=== PATIENT | female | born 1940 | race Caucasian/White ===

== ENCOUNTER → 2017-01-10 | Outpatient (CLI) | payer MEDICARE, BC ==
[2016-06-18 12:30] VITALS: BP 180/94
[~2017-01-10] MED LIST: ALEN70TA3 PO; ATOR10TA PO; CARV12.52 PO; CHOL10002 PO; CYCL-331 PO; CYCL1DRO OP; CYCL25CA PO; FENO145T2 PO; FOLI0.8T2 PO; INSU100C4 SQ; LEFL20TA15 PO; LEVO88TA2 PO; LOTE5DRO3 EACHEYE; MYCO250C PO; ONDA8TAB12 PO; TRET45GE TP; TRIA10PO2 MC; VITA100T5 PO; VITA150T PO; ZINC50TA29 PO
== END | disposition home or self-care (01) ==
LOC: LAB 08:51
PROVIDERS: ATTEND Internal Medicine Endocrinology, Diabetes & Metabolism
DX: E03.9 Hypothyroidism, unspecified (principal)
CPT/HCPCS: 84443

== ENCOUNTER → 2017-05-12 | Outpatient (CLI) | payer MEDICARE, BC ==
[2016-06-18 12:30] VITALS: BP 180/94
== END | disposition home or self-care (01) ==
LOC: LAB 08:31
PROVIDERS: ATTEND Internal Medicine Endocrinology, Diabetes & Metabolism
DX: E03.9 Hypothyroidism, unspecified (principal)
CPT/HCPCS: 84443

== ENCOUNTER → 2017-06-02 | Outpatient (CLI) | payer MEDICARE, BC ==
[2016-06-18 12:30] VITALS: BP 180/94
[2017-06-02 09:24] LABS: ALBUMIN 3.5 g/dL (3.4-5.0); ALBUMIN/GLOBULIN RATIO 1.1 (1.0-1.7); CALCIUM 9.5 mg/dL (8.5-10.1); CREATININE 1.4 mg/dL (0.6-1.0); GFR 36.7; POTASSIUM 3.9 mmol/L (3.5-5.1); TOTAL BILIRUBIN 0.8 mg/dL (0.2-1.0); TOTAL PROTEIN 6.6 g/dL (6.4-8.2)
[2017-06-02 09:30] LABS: BASO % 1 % (0-3); EOS # 0.2 x10^3/uL (0.0-0.7); EOS % 7 % (0-3); HEMATOCRIT 34.2 % (36.0-47.0); HEMOGLOBIN 11.2 g/dL (12.0-15.5); LYMPH # 0.7 x10^3/uL (1.0-4.8); LYMPH % 26 % (24-48); MEAN CORPUSCULAR HEMOGLOBIN 28 pg (25-35); MEAN CORPUSCULAR HGB CONC 33 g/dL (31-37); MEAN CORPUSCULAR VOLUME 86 fL (79-100); MONO # 0.3 x10^3/uL (0.0-1.1); MONO % 12 % (0-9); NEUT # 1.5 x10^3uL (1.8-7.7); NEUT % 55 % (31-73); PLATELET COUNT 191 x10^3/uL (140-400); RED BLOOD COUNT 3.97 x10^6/uL (3.50-5.40); RED CELL DISTRIBUTION WIDTH 14.8 % (11.5-14.5); WHITE BLOOD COUNT 2.7 x10^3/uL (4.0-11.0)
[2017-06-02 09:31] LABS: BACTERIA,URINE 0 /HPF (0-FEW); BILIRUBIN,URINE NEG (NEG); CLARITY,URINE CLEAR; COLOR,URINE YELLOW; GLUCOSE,URINE NEG (NEG); NITRITE,URINE NEG (NEG); RBC,URINE RARE /HPF (0-2); SQUAMOUS EPITHELIAL CELL,UR OCC /LPF; UROBILINOGEN,URINE 0.2 mg/dL (0.2 mg/dL); WBC,URINE RARE /HPF (0-4)
== END | disposition home or self-care (01) ==
LOC: LAB 08:32
PROVIDERS: ATTEND Nurse Practitioner Family
DX: Z51.81 Encounter for therapeutic drug level monitoring (principal); Z79.899 Other long term (current) drug therapy; Z94.4 Liver transplant status
CPT/HCPCS: 36415; 80053; 80158; 81001; 82550; 85025; 87086

== ENCOUNTER → 2017-09-01 | Outpatient (CLI) | payer MEDICARE, BC ==
[2016-06-18 12:30] VITALS: BP 180/94
== END | disposition home or self-care (01) ==
LOC: LAB 09:50
PROVIDERS: ATTEND Internal Medicine Endocrinology, Diabetes & Metabolism
DX: E03.9 Hypothyroidism, unspecified (principal); I10 Essential (primary) hypertension; E11.9 Type 2 diabetes mellitus without complications
CPT/HCPCS: 84443

== ENCOUNTER → 2018-05-26 | Outpatient (CLI) | payer MEDICARE, BC ==
[2016-06-18 12:30] VITALS: BP 180/94
[~2018-05-26] MED LIST changes: -CARV12.52 PO; +CARV12.547 PO; -FENO145T2 PO; +FENO145T30 PO; -ZINC50TA29 PO; +ZINC50TA39 PO
== END | disposition home or self-care (01) ==
LOC: LAB 08:29
PROVIDERS: ATTEND Nurse Practitioner Adult Health
DX: Z48.22 Encounter for aftercare following kidney transplant (principal); I10 Essential (primary) hypertension; Z94.0 Kidney transplant status; Z79.899 Other long term (current) drug therapy
CPT/HCPCS: 36415; 87799

== ENCOUNTER → 2018-06-30 | Outpatient (CLI) | payer MEDICARE, BC ==
[2016-06-18 12:30] VITALS: BP 180/94
[2018-06-30 10:02] LABS: BASO % 1 % (0-3); EOS # 0.1 x10^3/uL (0.0-0.7); EOS % 3 % (0-3); HEMATOCRIT 35.7 % (36.0-47.0); HEMOGLOBIN 11.7 g/dL (12.0-15.5); LYMPH # 0.8 x10^3/uL (1.0-4.8); LYMPH % 28 % (24-48); MEAN CORPUSCULAR HEMOGLOBIN 28 pg (25-35); MEAN CORPUSCULAR HGB CONC 33 g/dL (31-37); MEAN CORPUSCULAR VOLUME 85 fL (79-100); MONO # 0.3 x10^3/uL (0.0-1.1); MONO % 11 % (0-9); NEUT # 1.6 x10^3uL (1.8-7.7); NEUT % 57 % (31-73); PLATELET COUNT 210 x10^3/uL (140-400); RED BLOOD COUNT 4.21 x10^6/uL (3.50-5.40); RED CELL DISTRIBUTION WIDTH 14.1 % (11.5-14.5); WHITE BLOOD COUNT 2.9 x10^3/uL (4.0-11.0)
[2018-06-30 10:13] LABS: ALBUMIN 3.3 g/dL (3.4-5.0); ALBUMIN/GLOBULIN RATIO 1.1 (1.0-1.7); CALCIUM 10.2 mg/dL (8.5-10.1); CREATININE 1.4 mg/dL (0.6-1.0); GFR 36.6; POTASSIUM 4.3 mmol/L (3.5-5.1); TOTAL BILIRUBIN 0.8 mg/dL (0.2-1.0); TOTAL PROTEIN 6.4 g/dL (6.4-8.2)
[2018-06-30 10:26] LABS: BACTERIA,URINE 0 /HPF (0-FEW); BILIRUBIN,URINE NEG (NEG); CLARITY,URINE HAZY; COLOR,URINE YELLOW; GLUCOSE,URINE NEG (NEG); NITRITE,URINE NEG (NEG); RBC,URINE 0 /HPF (0-2); SQUAMOUS EPITHELIAL CELL,UR OCC /LPF; UROBILINOGEN,URINE 0.2 mg/dL (0.2 mg/dL)
== END | disposition home or self-care (01) ==
LOC: LAB 08:55
DX: Z48.22 Encounter for aftercare following kidney transplant (principal); Z94.0 Kidney transplant status; Z79.899 Other long term (current) drug therapy
CPT/HCPCS: 36415; 80053; 80158; 81001; 85025; 87086

== ENCOUNTER → 2019-01-05 | Outpatient (CLI) | payer MEDICARE, BC ==
[2016-06-18 12:30] VITALS: BP 180/94
[2019-01-05 10:57] LABS: ALBUMIN 3.5 g/dL (3.4-5.0); ALBUMIN/GLOBULIN RATIO 1.2 (1.0-1.7); CALCIUM 9.9 mg/dL (8.5-10.1); CREATININE 1.3 mg/dL (0.6-1.0); GFR 39.8; POTASSIUM 4.1 mmol/L (3.5-5.1); TOTAL BILIRUBIN 0.8 mg/dL (0.2-1.0); TOTAL PROTEIN 6.4 g/dL (6.4-8.2)
[2019-01-05 14:05] LABS: FREE T4 1.73 ng/dL (0.76-1.46); THYROID STIM HORMONE (TSH) 0.065 uIU/mL (0.358-3.740)
[2019-01-05 21:07] LABS: CALCIUM PTH 9.9 mg/dL (8.7-10.3); CREATININE PTH 1.17 mg/dL (0.57-1.00); PTH INTACT 95 pg/mL (15-65)
[2019-01-08 19:06] LABS: ALBUMIN RAND UR 50.2 % (.); ALPHA 1 RAND UR 3.5 % (.); ALPHA 2 RAND UR 8.7 % (.); BETA RAND UR 25.8 % (.); GAMMA RAND UR 11.8 % (.); PROTEIN UR RAND 12.7 mg/dL (Not Estab.)
[2019-01-08 20:09] LABS: ALBUM 3.4 g/dL (2.9-4.4); ALPHA 1 0.2 g/dL (0.0-0.4); ALPHA 2 0.5 g/dL (0.4-1.0); BETA 1.1 g/dL (0.7-1.3); GAMMA 0.6 g/dL (0.4-1.8); PROTEIN TOTAL 5.7 g/dL (6.0-8.5); SPEP AG RATIO 1.5 (0.7-1.7)
== END | disposition home or self-care (01) ==
LOC: LAB 08:56
PROVIDERS: ATTEND Internal Medicine Endocrinology, Diabetes & Metabolism
DX: E11.9 Type 2 diabetes mellitus without complications (principal); E03.9 Hypothyroidism, unspecified; E78.5 Hyperlipidemia, unspecified; I10 Essential (primary) hypertension; Z79.4 Long term (current) use of insulin; Z79.899 Other long term (current) drug therapy
CPT/HCPCS: 36415; 80053; 80061; 82043; 82306; 82533; 83970; 84165; 84166; 84439; 84443

== ENCOUNTER → 2019-01-24 | Outpatient (CLI) | payer MEDICARE, BC ==
[2016-06-18 12:30] VITALS: BP 180/94
[2019-01-24 09:36] LABS: BASO % 0 % (0-3); EOS # 0.1 x10^3/uL (0.0-0.7); EOS % 4 % (0-3); HEMATOCRIT 35.4 % (36.0-47.0); HEMOGLOBIN 11.5 g/dL (12.0-15.5); LYMPH # 0.8 x10^3/uL (1.0-4.8); LYMPH % 26 % (24-48); MEAN CORPUSCULAR HEMOGLOBIN 28 pg (25-35); MEAN CORPUSCULAR HGB CONC 33 g/dL (31-37); MEAN CORPUSCULAR VOLUME 87 fL (79-100); MONO # 0.3 x10^3/uL (0.0-1.1); MONO % 10 % (0-9); NEUT # 1.8 x10^3uL (1.8-7.7); NEUT % 61 % (31-73); PLATELET COUNT 178 x10^3/uL (140-400); RED BLOOD COUNT 4.06 x10^6/uL (3.50-5.40); RED CELL DISTRIBUTION WIDTH 14.4 % (11.5-14.5); WHITE BLOOD COUNT 2.9 x10^3/uL (4.0-11.0)
[2019-01-24 09:53] LABS: ALBUMIN 3.4 g/dL (3.4-5.0); ALBUMIN/GLOBULIN RATIO 1.2 (1.0-1.7); CALCIUM 10.4 mg/dL (8.5-10.1); CREATININE 1.3 mg/dL (0.6-1.0); GFR 39.8; POTASSIUM 4.1 mmol/L (3.5-5.1); TOTAL BILIRUBIN 1.1 mg/dL (0.2-1.0); TOTAL PROTEIN 6.2 g/dL (6.4-8.2)
== END | disposition home or self-care (01) ==
LOC: LAB 08:16
PROVIDERS: ATTEND Nurse Practitioner Family
DX: Z48.23 Encounter for aftercare following liver transplant (principal); D89.9 Disorder involving the immune mechanism, unspecified; Z94.4 Liver transplant status
CPT/HCPCS: 36415; 80053; 80158; 85025

== ENCOUNTER → 2019-09-11 | Outpatient (CLI) | payer MEDICARE, BC ==
[2016-06-18 12:30] VITALS: BP 180/94
[~2019-09-11] MED LIST changes: +FENO145T3 PO; -FENO145T30 PO
[2019-09-11 19:09] LABS: THYROID STIM HORMONE (TSH) 0.111 uIU/mL (0.358-3.740)
[2019-09-12 01:07] LABS: HEMOGLOBIN A1C 5.1 % (4.8-5.6)
== END | disposition home or self-care (01) ==
LOC: LAB 08:54
PROVIDERS: ATTEND Nurse Practitioner Family
DX: M85.9 Disorder of bone density and structure, unspecified (principal); Z79.899 Other long term (current) drug therapy; Z94.4 Liver transplant status
CPT/HCPCS: 36415; 80061; 82306; 82570; 83036; 84156; 84436; 84443

== ENCOUNTER → 2019-12-18 | Outpatient (CLI) | payer MEDICARE, BC ==
[2016-06-18 12:30] VITALS: BP 180/94
== END ==
LOC: LAB 08:52
PROVIDERS: ATTEND Orthopaedic Surgery
DX: T14.8XXA Other injury of unspecified body region, initial encounter (principal); R52 Pain, unspecified; X58.XXXA Exposure to other specified factors, initial encounter; Y93.89 Activity, other specified; Y92.89 Other specified places as the place of occurrence of the external cause; Y99.8 Other external cause status
CPT/HCPCS: 36415; 86140

== ENCOUNTER → 2019-12-18 | Outpatient (CLI) | payer MEDICARE, BC ==
[2016-06-18 12:30] VITALS: BP 180/94
[2019-12-18 11:15] LABS: ALBUMIN 3.5 g/dL (3.4-5.0); ALBUMIN/GLOBULIN RATIO 1.1 (1.0-1.7); CALCIUM 10.3 mg/dL (8.5-10.1); CREATININE 1.2 mg/dL (0.6-1.0); GFR 43.6; POTASSIUM 3.9 mmol/L (3.5-5.1); TOTAL PROTEIN 6.8 g/dL (6.4-8.2)
[2019-12-18 17:09] LABS: FREE T4 1.55 ng/dL (0.76-1.46); THYROID STIM HORMONE (TSH) 0.438 uIU/mL (0.358-3.740)
[2019-12-19 00:06] LABS: CALCIUM PTH 10.3 mg/dL (8.7-10.3); CREATININE PTH 1.18 mg/dL (0.57-1.00); PTH INTACT 80 pg/mL (15-65)
[2019-12-20 13:08] LABS: ALBUM 3.5 g/dL (2.9-4.4); ALPHA 1 0.3 g/dL (0.0-0.4); ALPHA 2 0.5 g/dL (0.4-1.0); BETA 1.1 g/dL (0.7-1.3); GAMMA 0.9 g/dL (0.4-1.8); PROTEIN TOTAL 6.3 g/dL (6.0-8.5); SPEP AG RATIO 1.3 (0.7-1.7)
== END ==
LOC: LAB 09:15
PROVIDERS: ATTEND Internal Medicine Endocrinology, Diabetes & Metabolism
DX: E11.9 Type 2 diabetes mellitus without complications (principal); E78.5 Hyperlipidemia, unspecified; E03.9 Hypothyroidism, unspecified; I10 Essential (primary) hypertension; M81.0 Age-related osteoporosis without current pathological fracture; Z79.4 Long term (current) use of insulin
CPT/HCPCS: 36415; 80053; 80061; 82043; 82306; 82533; 83970; 84165; 84166; 84439; 84443

== ENCOUNTER → 2019-12-18 | Outpatient (CLI) | payer MEDICARE, BC ==
[2016-06-18 12:30] VITALS: BP 180/94
[2019-12-18 10:42] LABS: BASO % 0 % (0-3); EOS # 0.1 x10^3/uL (0.0-0.7); EOS % 4 % (0-3); HEMATOCRIT 38.5 % (36.0-47.0); HEMOGLOBIN 12.6 g/dL (12.0-15.5); LYMPH # 0.9 x10^3/uL (1.0-4.8); LYMPH % 25 % (24-48); MEAN CORPUSCULAR HEMOGLOBIN 29 pg (25-35); MEAN CORPUSCULAR HGB CONC 33 g/dL (31-37); MEAN CORPUSCULAR VOLUME 88 fL (79-100); MONO # 0.2 x10^3/uL (0.0-1.1); MONO % 7 % (0-9); NEUT # 2.2 x10^3uL (1.8-7.7); NEUT % 63 % (31-73); PLATELET COUNT 200 x10^3/uL (140-400); RED BLOOD COUNT 4.36 x10^6/uL (3.50-5.40); WHITE BLOOD COUNT 3.4 x10^3/uL (4.0-11.0)
[2019-12-18 10:47] LABS: ALBUMIN 3.5 g/dL (3.4-5.0); ALBUMIN/GLOBULIN RATIO 1.1 (1.0-1.7); CALCIUM 10.1 mg/dL (8.5-10.1); CREATININE 1.2 mg/dL (0.6-1.0); GFR 43.6; TOTAL PROTEIN 6.7 g/dL (6.4-8.2)
[2019-12-18 16:30] LABS: CREATININE,RANDOM URINE 149.2 mg/dL (Not Establ.)
== END ==
LOC: LAB 08:40
PROVIDERS: ATTEND Nurse Practitioner Family
DX: Z94.4 Liver transplant status (principal); Z94.0 Kidney transplant status; Z79.899 Other long term (current) drug therapy
CPT/HCPCS: 36415; 80053; 80158; 82570; 84156; 85025

== ENCOUNTER → 2020-01-22 | Outpatient (CLI) | payer MEDICARE, BC ==
[2016-06-18 12:30] VITALS: BP 180/94
[2020-01-22 10:55] LABS: CALCIUM 9.9 mg/dL (8.5-10.1); GFR 39.7; TOTAL PROTEIN 6.7 g/dL (6.4-8.2)
[2020-01-22 11:22] LABS: ALBUMIN 3.2 g/dL (3.4-5.0); ALBUMIN/GLOBULIN RATIO 0.9 (1.0-1.7); CREATININE 1.3 mg/dL (0.6-1.0); POTASSIUM 3.7 mmol/L (3.5-5.1); TOTAL BILIRUBIN 0.9 mg/dL (0.2-1.0)
[2020-01-22 14:09] LABS: FREE T4 1.56 ng/dL (0.76-1.46); THYROID STIM HORMONE (TSH) 0.963 uIU/mL (0.358-3.740)
--- NOTE | 2020-01-22 14:14 | RAD ---
EXAM: DUAL ENERGY X-RAY ABSORPTIOMETRY (DEXA). HISTORY: Postmenopausal screening. FINDINGS: The lowest measured T-score is -2.3 in the right femoral neck, based on a bone mineral density of 0.722 g/cm^2. Refer to the worksheets for full detail. No comparison examinations are available. IMPRESSION: Low bone mass. Bone mineral density yields a T-score between -1.0 and -2.5. Fracture risk is increased. FRAX was not calculated. METHODOLOGY: Dual energy x-ray absorptiometry was performed to measure bone mineral density. The following analysis is based on the 2019 Official Positions of the International Society for Clinical Densitometry: Measurements of the hips and the average of L1-L4 are preferred. When the spine and/or hip cannot be feasibly measured or interpreted, or in the setting of hyperparathyroidism, distal radial bone mineral density may be measured. The lumbar spine T-score is based on the average bone mineral density of L1-L4. In the setting of artifact or anatomic abnormality, some lumbar levels may be excluded, and the remaining levels used for calculation. A single lumbar level is not used for diagnosis, and if only a single level is available for assessment, another anatomic site will be used to assign a diagnosis. The hip T-score is based on the bone mineral density measurement of the femoral neck or total proximal femur of either side, whichever is lowest. Bilateral mean values are not used for diagnosis. The forearm T-score is derived from 33% of the distal radius of the nondominant forearm. For postmenopausal and perimenopausal women, and men age 50 or older, of all ethnic groups, T-scores are calculated through comparison of the current measurement with the NHANES III database standard for females aged 20-29 years. The lowest T-score of the evaluated anatomic sites is used to assign a diagnosis based on the World Health Organization densitometric classification. In premenopausal females and males younger than age 50, a Z-score is calculated based on population specific reference data for patient sex and self-reported ethnicity. Electronically signed by: Yuliet Blakely MD (01/22/2020 2:11 PM) [facility]
== END | disposition home or self-care (01) ==
LOC: DXRAD 09:13
PROVIDERS: ATTEND Internal Medicine Endocrinology, Diabetes & Metabolism
DX: M81.0 Age-related osteoporosis without current pathological fracture (principal); E03.9 Hypothyroidism, unspecified
CPT/HCPCS: 36415; 77080; 80053; 82306; 84439; 84443

== ENCOUNTER → 2020-03-05 | Outpatient (CLI) | payer MEDICARE, BC ==
[2016-06-18 12:30] VITALS: BP 180/94
[2020-03-05 10:58] LABS: BASO % 0 % (0-3); EOS # 0.1 x10^3/uL (0.0-0.7); EOS % 4 % (0-3); HEMATOCRIT 36.6 % (36.0-47.0); HEMOGLOBIN 11.9 g/dL (12.0-15.5); LYMPH # 0.8 x10^3/uL (1.0-4.8); LYMPH % 22 % (24-48); MEAN CORPUSCULAR HEMOGLOBIN 28 pg (25-35); MEAN CORPUSCULAR HGB CONC 33 g/dL (31-37); MEAN CORPUSCULAR VOLUME 87 fL (79-100); MONO # 0.3 x10^3/uL (0.0-1.1); MONO % 8 % (0-9); NEUT # 2.4 x10^3uL (1.8-7.7); NEUT % 66 % (31-73); PLATELET COUNT 259 x10^3/uL (140-400); RED CELL DISTRIBUTION WIDTH 15.2 % (11.5-14.5); WHITE BLOOD COUNT 3.6 x10^3/uL (4.0-11.0)
[2020-03-05 11:11] LABS: ALBUMIN/GLOBULIN RATIO 0.9 (1.0-1.7); CALCIUM 9.8 mg/dL (8.5-10.1); CREATININE 1.3 mg/dL (0.6-1.0); GFR 39.7; POTASSIUM 3.9 mmol/L (3.5-5.1); TOTAL BILIRUBIN 0.8 mg/dL (0.2-1.0); TOTAL PROTEIN 6.5 g/dL (6.4-8.2)
== END | disposition home or self-care (01) ==
LOC: LAB 09:57
PROVIDERS: ATTEND Nurse Practitioner Family
DX: Z79.899 Other long term (current) drug therapy (principal); Z94.4 Liver transplant status
CPT/HCPCS: 36415; 80053; 80158; 85025

== ENCOUNTER → 2020-03-05 | Outpatient (CLI) | payer MEDICARE, BC ==
[2016-06-18 12:30] VITALS: BP 180/94
== END | disposition home or self-care (01) ==
LOC: LAB 10:06
PROVIDERS: ATTEND Orthopaedic Surgery
DX: R52 Pain, unspecified (principal)
CPT/HCPCS: 36415; 86140

== ENCOUNTER → 2020-05-19 | Outpatient (CLI) | payer MEDICARE, BC ==
[2016-06-18 12:30] VITALS: BP 180/94
[2020-05-19 10:22] LABS: BASO % 0 % (0-3); EOS # 0.1 x10^3/uL (0.0-0.7); EOS % 3 % (0-3); HEMATOCRIT 38.7 % (36.0-47.0); HEMOGLOBIN 12.5 g/dL (12.0-15.5); LYMPH % 25 % (24-48); MEAN CORPUSCULAR HEMOGLOBIN 28 pg (25-35); MEAN CORPUSCULAR HGB CONC 32 g/dL (31-37); MEAN CORPUSCULAR VOLUME 88 fL (79-100); MONO # 0.3 x10^3/uL (0.0-1.1); MONO % 7 % (0-9); NEUT # 2.4 x10^3uL (1.8-7.7); NEUT % 64 % (31-73); PLATELET COUNT 208 x10^3/uL (140-400); RED BLOOD COUNT 4.42 x10^6/uL (3.50-5.40); RED CELL DISTRIBUTION WIDTH 15.9 % (11.5-14.5); WHITE BLOOD COUNT 3.8 x10^3/uL (4.0-11.0)
[2020-05-19 10:36] LABS: ALBUMIN 3.3 g/dL (3.4-5.0); ALBUMIN/GLOBULIN RATIO 1.1 (1.0-1.7); CALCIUM 10.1 mg/dL (8.5-10.1); CREATININE 1.2 mg/dL (0.6-1.0); GFR 43.4; POTASSIUM 3.9 mmol/L (3.5-5.1); TOTAL BILIRUBIN 0.9 mg/dL (0.2-1.0); TOTAL PROTEIN 6.3 g/dL (6.4-8.2)
== END ==
LOC: LAB 09:00
PROVIDERS: ATTEND Nurse Practitioner Family
DX: Z79.899 Other long term (current) drug therapy (principal); Z94.4 Liver transplant status
CPT/HCPCS: 80053; 80158; 85025

== ENCOUNTER 2020-11-11 19:52 | Inpatient (IN) | payer MEDICARE, BC ==
[~2020-11-11] VITALS: Ht 162.6 cm; Wt 74.2 kg
[~2020-11-11 19:52] MED LIST changes: -FOLI0.8T2 PO; +FOLI0.8T5 PO
--- NOTE | 2020-11-11 20:34 | PHYS DOC ---
Past History Past Medical History: Diabetes, Hypertension, Hypothyroid, Other (KRYSTEN MCCLENDON APRN) Past Surgical History: Hysterectomy, Other Additional Past Surgical Histo: left kidney transplant, liver transplant (KRYSTEN MCCLENDON APRN) Smoking: Non-smoker Alcohol Use: None Drug Use: None (KRYSTEN MCCLENDON APRN) General Adult EDM: Chief Complaint: LOWER EXT PAIN HPI: HPI: Patient is a 80-year-old female presents with left knee swelling, redness, pain. Patient states 3 days ago she started having drainage from her knee, and unable to transfer herself from her wheelchair. Patient reports tenderness to fever at home. Denies taking any Tylenol or ibuprofen. Patient states "I broke my leg 3 years ago and had to have screws placed". Patient lives at home with her h band, who brought her to the emergency room due to an increase in pain. Denies injury. (KRYSTEN MCCLENDON APRN) Review of Systems: Review of Systems: Constitutional: Reports fever, chills Eyes: Denies change in visual acuity HENT: Denies nasal congestion or sore throat Respiratory: Denies cough or shortness of breath Cardiovascular: Denies chest pain or edema GI: Denies abdominal pain, nausea, vomiting, bloody stools or diarrhea : Denies dysuria Musculoskeletal: Denies back pain or joint pain Integument: Left leg is red, swollen, warm to the touch, purulent discharge Neurologic: Denies headache, focal weakness or sensory changes Endocrine: Denies polyuria or polydipsia Lymphatic: Denies swollen glands Psychiatric: Denies depression or anxiety (KRYSTEN MCCLENDON APRN) Allergies: Allergies: Allergies Coded Allergies Type Severity Reaction Last Updated Verified No Known Drug Allergies 06/25/13 No (KRYSTEN MCCLENDON APRN) Physical Exam: PE: Constitutional: Well developed, well nourished, no acute distress, non-toxic appearance. [] HENT: Normocephalic, atraumatic, bilateral external ears normal, oropharynx moist, no oral exudates, nose normal. [] Eyes: PERRLA, EOMI, conjunctiva normal, no discharge. [] Neck: Normal range of motion, no tenderness, supple, no stridor. [] Cardiovascular:Heart rate regular rhythm, no murmur [] Lungs & Thorax: Bilateral breath sounds clear to auscultation [] Abdomen: Bowel sounds normal, soft, no tenderness, no masses, no pulsatile masses. [] Skin: Warm, purulent discharge, swollen, left knee Back: No tenderness, no CVA tenderness. [] Extremities: Left knee tenderness, ROM intact, swelling Neurologic: Alert and oriented X 3, normal motor function, normal sensory function, no focal deficits noted. [] Psychologic: Affect normal, judgement normal, mood normal. [] (KRYSTEN MCCLENDON APRN) EKG: EKG: [] Sinus rhythm. Heart rate 77 bpm. (KRYSTEN MCCLENDON APRN) Radiology/Procedures: Radiology/Procedures: [] (KRYSTEN MCCLENDON APRN) Heart Score: C/O Chest Pain: No Risk Factors: Risk Factors: DM, Current or recent (<one month) smoker, HTN, HLP, family history of CAD, obesity. Risk Scores: Score 0 - 3: 2.5% MACE over next 6 weeks - Discharge Home Score 4 - 6: 20.3% MACE over next 6 weeks - Admit for Clinical Observation Score 7 - 10: 72.7% MACE over next 6 weeks - Early Invasive Strategies (KRYSTEN MCCLENDON APRN) Course & Med Decision Making: Course & Med Decision Making Pertinent Labs and Imaging studies reviewed. (See chart for details) [] 80-year-old female presents with left knee swelling, redness, purulent discharge and pain. Patient was brought in by her after not being able to transfer herself today from her wheelchair. She has been running 102 fever at home. Patient broke her left leg 3 years ago and had to have surgery on the left knee. CBC, CMP, blood cultures, lactic ordered. Vancomycin and cefepime started for infection. X-ray of left knee. Contacted Dr. Li to admit patient. Dr. Li will accept patient. Patient is going to be admitted for a septic joint. Patient agrees with this plan and is okay with admit. (KRYSTEN MCCLENDON APRN) Course & Med Decision Making agree with FIRE LIEUTENANT MARINE's workup and disposition per note. (FUAD MCKOY MD) [place]on Disclaimer: Dragon Disclaimer: This electronic medical record was generated, in whole or in part, using a voice recognition dictation system. (KRYSTEN MCCLENDON APRN) Departure Departure: Impression: Primary Impression: Septic joint Qualified Codes: M00.9 - Pyogenic arthritis, unspecified Disposition: 09 ADMITTED INPATIENT Admitting Physician: Lavon Martinez (KRYSTEN MCCLENDON APRN) Condition: STABLE Referrals: RICH PEREZ MD (PCP) KRYSTEN MCCLENDON APRN Nov 11, 2020 20:33 FUAD MCKOY MD Nov 14, 2020 18:14
[2020-11-11] MEDS ORDERED: VANCOMYCIN 1.5 GM in IV NORMAL SALINE 500ML 500 ML IV ONE (20:45)
[2020-11-11] MEDS ORDERED: IV NORMAL SALINE 1,000ML 1,000 ML IV ONE (20:45)
[2020-11-11] MEDS ORDERED: ACETAMINOPHEN 500 MG TABLET PO ONE (20:45)
[2020-11-11 20:56] LABS: BASO % 0 % (0-3); EOS % 0 % (0-3); HEMATOCRIT 36.8 % (36.0-47.0); HEMOGLOBIN 12.1 g/dL (12.0-15.5); LYMPH # 0.5 x10^3/uL (1.0-4.8); LYMPH % 9 % (24-48); MEAN CORPUSCULAR HEMOGLOBIN 29 pg (25-35); MEAN CORPUSCULAR HGB CONC 33 g/dL (31-37); MEAN CORPUSCULAR VOLUME 88 fL (79-100); MONO # 0.6 x10^3/uL (0.0-1.1); MONO % 10 % (0-9); NEUT # 4.6 x10^3uL (1.8-7.7); NEUT % 80 % (31-73); PLATELET COUNT 188 x10^3/uL (140-400); RED BLOOD COUNT 4.17 x10^6/uL (3.50-5.40); RED CELL DISTRIBUTION WIDTH 14.3 % (11.5-14.5); WHITE BLOOD COUNT 5.8 x10^3/uL (4.0-11.0)
[2020-11-11 20:59] LABS: CALCIUM 10.5 mg/dL (8.5-10.1); CREATININE 1.3 mg/dL (0.6-1.0); GFR 39.6; POTASSIUM 3.7 mmol/L (3.5-5.1)
[2020-11-11 21:05] LABS: ALBUMIN/GLOBULIN RATIO 0.9 (1.0-1.7); TOTAL BILIRUBIN 1.1 mg/dL (0.2-1.0); TOTAL PROTEIN 6.2 g/dL (6.4-8.2)
[2020-11-11] MEDS ORDERED: CEFEPIME HCL 2 GM in IV NORMAL SALINE 100ML 100 ML IV ONE (21:15)
[2020-11-11] MEDS ORDERED: CEFEPIME HCL 2 GM VIAL IV ONE (21:22)
[2020-11-11] MEDS ORDERED: IV NORMAL SALINE 100ML 100 ML ONE (21:22)
[2020-11-11] MEDS ORDERED: VANCOMYCIN PER PHARMACY MC PRN (21:30)
--- NOTE | 2020-11-11 21:43 | NUR ---
Pharmacy Vancomycin Dosing Note S:Consulted to monitor and dose vancomycin started 11/11/20. O:CHANTEL AVALOS is a 80 year old F with , SEPTIC JOINT . Height: 5 feet, 4 inches Weight: 75.9 kg [place] Body Weight: 54.70 Adjusted Body Weight: 63.18 Dosing Weight: Actual Other Antibiotics: CEFEPIME 2GM IV Q8HRS LABS: Last BUN: 30 Last Creatinine: 1.3 Creatinine Clearance: 35.57 Last WBC: 5.8 Vancomycin Dosing: Loading Dose: 2000 mg x1 Dosing Weight: Actual Target Trough: 10-20 A: Based on: Actula weight, renal function, and indication P: 1. Begin Vancomycin 1250 mg IV q24h 2. Follow up Trough level on 11/13/20 at 2230 3. Pharmacy will continue to monitor, follow and adjust therapy as needed. DEBBIE JONES, 11/11/20 [id number]
--- NOTE | 2020-11-11 22:04 | RAD ---
Exam: Left knee 3 views INDICATION: Left knee swelling TECHNIQUE: Frontal, lateral and oblique views left knee Comparisons: None FINDINGS: Fixation at the distal left femur. There is nonunion fracture at the distal left femoral metaphysis w hich appears mildly angulated. Diffuse surrounding soft tissue swelling. Diffuse osteopenia. No acute fractures identified. Joint spaces are otherwise well-maintained. 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 Correla te for infection. Electronically signed by: Tena Adams MD (11/11/2020 10:01 PM) [facility]
--- NOTE | 2020-11-11 22:30 | NUR ---
ADMISSION: The patient, CHANTEL AVALOS, 80 y/o, F admitted by THOMAS MOY MD, was given written information regarding hospital policies, unit procedures and contact persons. Pt arrived to ICU bed 4 via gurney, accompanied by [facility] and ED staff. Pt here for septic joint. Pt reports increased pain and swelling to left lateral knee over the past 3 days. Pt notes a large amount of purulent drainage since yesterday. Pt has an appt with an ortho surgeon at [facility] tomorrow after having to wait over a year for follow-up due to COVID-19 restrictions, but pt reports pain became too intense to wait for office visit and presented to ED for treatment. Pt febrile in ED, given PO tylenol. Orders for vanco and cefepime to cover infection. Pic taken of left knee, wound care consult placed. Discussed POC with pt, V/U. Call light in reach. Valuables were checked and logged. Pt brought some home meds in 2 separate pill sorter boxes labeled Wed and Th, as well as 10 individually packaged Gengraf capsules, 25mg each. Meds were bagged and sent to pharmacy for safekeeping during stay.
[2020-11-11 22:37] VITALS: BP 136/62
--- NOTE | 2020-11-11 22:51 | EKG ---
[address] [address] Test Date: 2020-11-11 Test Time: 20:35:01 Pat Name: CHANTEL AVALOS Department: Room: [facility] 1 Gender: F Technical Implementation Lead: JONO : 1940 Requested By: KRYSTEN MCCLENDON Order Number: [id number] Reading MD: Measurements Intervals [place] Rate: 72 P: 42 [place]: 160 QRS: 27 QRSD: 88 T: 18 QT: 388 QTc: 426 Interpretive Statements SINUS RHYTHM NORMAL ECG RI6.02 No previous ECG available for comparison
[2020-11-11] MEDS ORDERED: VANCOMYCIN 2 GM in IV NORMAL SALINE 500ML 500 ML IV ONE (23:00)
[2020-11-11] MEDS ORDERED: CYCL25CA12 PO (23:13)
[2020-11-12] MEDS ORDERED: CEFEPIME HCL 2 GM in IV NORMAL SALINE 100ML 100 ML IV SCH (06:00)
[2020-11-12 06:26] VITALS: BP 110/45
--- NOTE | 2020-11-12 06:38 | EKG ---
[facility] ED [facility] [place] [id number] Test Date: 2020-11-11 Test Time: 20:43:55 Pat Name: CHANTEL AVALOS Department: Room: [facility]04 1 Gender: F Supervisor Intelligence Analyst: JONO : 1940 Requested By: THOMAS MOY Order Number: [id number] Reading MD: Measurements Intervals [place] Rate: 77 P: 90 [place]: 190 QRS: -54 QRSD: 122 T: 133 QT: 370 QTc: 420 Interpretive Statements SINUS RHYTHM ABNORMAL LEFT AXIS DEVIATION LVH WITH REPOLARIZATION ABNORMALITY QRS(T) CONTOUR ABNORMALITY CONSIDER ANTEROSEPTAL MYOCARDIAL DAMAGE ABNORMAL ECG RI6.02 No previous ECG available for comparison
[2020-11-12 07:51] LABS: COLOR,URINE AMBER
[2020-11-12 07:52] LABS: BACTERIA,URINE FEW /HPF (0-FEW); BILIRUBIN,URINE NEG (NEG); CLARITY,URINE HAZY; GLUCOSE,URINE NEG (NEG); NITRITE,URINE NEG (NEG); RBC,URINE 0 /HPF (0-2); SQUAMOUS EPITHELIAL CELL,UR FEW /LPF; UROBILINOGEN,URINE 0.2 mg/dL (0.2 mg/dL)
[2020-11-12] MEDS ORDERED: MYCOPHENOLATE MOFETIL 250 MG CAPSULE PO SCH ×2 (09:45→21:00)
[2020-11-12] MEDS: LACTOBACILLUS RHAMNOSUS GG 1 CAPSULE. PO SCH ×2 (09:52→20:36)
[2020-11-12] MEDS: CEFEPIME HCL 2 GM in IV NORMAL SALINE 100ML 100 ML IV SCH ×2 (09:52→20:36)
[2020-11-12] MEDS: NON FORMULARY ITEM PO SCH ×2 (10:46→18:06)
[2020-11-12] MEDS: MYCOPHENOLATE MOFETIL 250 MG CAPSULE PO SCH ×2 (10:46→18:06)
[2020-11-12] MEDS ORDERED: LIDOCAINE 2%/EPI 1:100,000 20 ML VIAL. IJ ONE (11:15)
[2020-11-12 11:50] VITALS: BP 130/52
[2020-11-12] MEDS: ENOXAPARIN 40 MG/0.4 ML SYRINGE. SQ SCH (12:52)
[2020-11-12] MEDS: FOLIC ACID 1 MG TABLET PO SCH (12:52)
[2020-11-12] MEDS: ACETAMINOPHEN 500 MG TABLET PO PRN (12:52)
[2020-11-12] MEDS: CHOLECALCIFEROL (VITAMIN D3) 1,000 UNIT TABLET PO SCH (12:52)
[2020-11-12] MEDS: CARVEDILOL 12.5 MG TABLET PO SCH (18:02)
[2020-11-12 18:05] VITALS: BP 121/52
[2020-11-12] MEDS ORDERED: CYCLOSPORINE PO SCH (21:00)
[2020-11-12] MEDS ORDERED: ATORVASTATIN CALCIUM 10 MG TABLET. PO SCH (21:00)
[2020-11-12] MEDS ORDERED: [UNRECOGNIZED DRUG - OTHER] PO SCH (21:00)
[2020-11-12] MEDS ORDERED: VANCOMYCIN 1.25 GM in IV NORMAL SALINE 250ML 250 ML IV SCH (23:00)
[2020-11-12 23:05] VITALS: BP 157/58
[2020-11-13] MEDS: ACETAMINOPHEN 500 MG TABLET PO PRN (06:25)
[2020-11-13] MEDS: MYCOPHENOLATE MOFETIL 250 MG CAPSULE PO SCH (06:26)
[2020-11-13] MEDS: NON FORMULARY ITEM PO SCH (06:26)
[2020-11-13] MEDS ORDERED: LEVOTHYROXINE 88 MCG TABLET PO SCH (07:30)
[2020-11-13 07:57] LABS: BASO % 0 % (0-3); EOS % 1 % (0-3); HEMATOCRIT 29.4 % (36.0-47.0); HEMOGLOBIN 9.7 g/dL (12.0-15.5); LYMPH # 0.6 x10^3/uL (1.0-4.8); LYMPH % 12 % (24-48); MEAN CORPUSCULAR HEMOGLOBIN 29 pg (25-35); MEAN CORPUSCULAR HGB CONC 33 g/dL (31-37); MEAN CORPUSCULAR VOLUME 89 fL (79-100); MONO # 0.5 x10^3/uL (0.0-1.1); MONO % 11 % (0-9); NEUT # 3.6 x10^3uL (1.8-7.7); NEUT % 76 % (31-73); PLATELET COUNT 145 x10^3/uL (140-400); RED BLOOD COUNT 3.32 x10^6/uL (3.50-5.40); RED CELL DISTRIBUTION WIDTH 14.4 % (11.5-14.5); WHITE BLOOD COUNT 4.7 x10^3/uL (4.0-11.0)
[2020-11-13 08:05] LABS: CALCIUM 9.4 mg/dL (8.5-10.1); CREATININE 1.4 mg/dL (0.6-1.0); GFR 36.4; POTASSIUM 3.9 mmol/L (3.5-5.1)
--- NOTE | 2020-11-13 08:20 | NUR ---
Wound/Ostomy Care Wound Type/Assessment: Patient seen per wound care consult. See wound assessment. patient has abscess to left lateral knee. Patient stated she has had pain and swelling for a week or more, and developed a large abscess. Yesterday her physician Dr. Martinez lanced this abscess per patient at bedside. Patient stated this instantly relieved her pain. the wound continues to drain large amounts of purulent creamy drainage. the knee continues to be very swollen and red. Patient stated she does have hardware in the left leg. Wound cleansed, assessed, and measured. Treatment Recommendations/Plan: recommendations to pack with Iodoform gauze packing, cover with ABD pad, and wrap with kerlix. Change daily and PRN. Dressing applied and no other wounds noted. Education provided: Patient educated on dressing changes and PU prevention. Offloading surface/device: N/A Recommended Referrals/Tests: Patient should follow up with ortho physician regarding possible infection due to hardware. Discharge Recommendations for dressings: Dressing change instructions left in room. Bed lowered and call light in reach. wound care will follow up on 11/18/20. Addendum: 11/13/20 at 0836 by SLIME DARLING RN This patient was seen on 11/12/20 at 1530 per wound care.
[2020-11-13] MEDS ORDERED: VITAMIN B COMPLEX CAPSULE. PO SCH (09:00)
[2020-11-13] MEDS ORDERED: ASCORBIC ACID 500 MG TABLET PO SCH (09:00)
[2020-11-13] MEDS ORDERED: LEFLUNOMIDE PO SCH (09:00)
[2020-11-13] MEDS ORDERED: ZINC SULFATE 220 MG CAPSULE. PO SCH (09:00)
[2020-11-13] MEDS: CEFEPIME HCL 2 GM in IV NORMAL SALINE 100ML 100 ML IV SCH (09:08)
[2020-11-13] MEDS: FOLIC ACID 1 MG TABLET PO SCH (09:09)
[2020-11-13] MEDS: LACTOBACILLUS RHAMNOSUS GG 1 CAPSULE. PO SCH (09:09)
[2020-11-13] MEDS: CHOLECALCIFEROL (VITAMIN D3) 1,000 UNIT TABLET PO SCH (09:09)
[2020-11-13] MEDS: CARVEDILOL 12.5 MG TABLET PO SCH (09:10)
[2020-11-13 10:18] VITALS: BP 121/53
[2020-11-13] MEDS ORDERED: ONDANSETRON PF 4 MG/2 ML VIAL. IVP PRN (11:00)
[2020-11-13] MEDS: ENOXAPARIN 40 MG/0.4 ML SYRINGE. SQ SCH (12:30)
--- NOTE | 2020-11-13 14:29 | NUR ---
TRANSFER TO [facility] Pt to transfer to [facility] for higher level of care for septic L knee joint. Pt transferring to room [id number] at [facility]. Report called to Daphne on unit 43 at . EMS called to transport pt. Will continue to monitor. CLARISSA,RN
[2020-11-13 15:16] VITALS: BP 160/78
--- NOTE | 2020-11-13 18:46 | OP ---
DATE OF SURGERY: 11/12/2020 INDICATION: This is a 80-year-old female who came in with cellulitis to her left knee area specifically with an abscess noted. DESCRIPTION OF PROCEDURE: The patient in turn had purulent drainage coming forth from the abscess. The patient after she gave her written consent, told the possible complications and signed the proper papers. The patient in turn had the area Betadined and then infiltrated with lidocaine 2% with epinephrine to sufficiently numb the area. The patient then an elliptical incision made around the opening of the abscess that was draining and purulent matter was removed from the wound area itself. It was then flushed thoroughly with normal saline and then iodoform gauze was placed in the wound itself and then packed with sterile dressings, raised elevation of the leg. Continue on present therapy of vancomycin and cefepime. The patient tolerated the procedure well. There were no complications and questions were made and answered appropriately. Assistance was given by Dickson, the ICU nurse here. IMPRESSION: Abscess to the left knee. PROCEDURE: I and D of the left abscess located on the lateral side of the left knee. LIZETH/SANKET/COURTNEY DR: Marv TID: [id number]
--- NOTE | 2020-11-13 18:49 | HP ---
ADMIT DATE: 11/11/2020 HISTORY OF PRESENT ILLNESS: A 80-year-old female with a history of liver and kidney transplant, on immunosuppressive drugs, for the last week has noted some swelling to her left knee where she has had previous fractures. Apparently, there are some other surgeries that were performed on that knee. In any case, the patient had a huge swelling to the area and finally came in through the emergency room. The patient's x-ray showed a nonunion fracture at the distal left femur metaphysis angulated with some tissue swelling consistent with her infection. Abundant pus coming from the wound area which was raised abscess. Cultures and sensitivities were taken. She is receiving IV vancomycin and cefepime for the infection. The vancomycin is being controlled by pharmacy 1.25 grams of vancomycin daily IV. Also, cefepime 2 grams IV q. 12. The patient is resting comfortably and procedure later done to do an I and D on that abscess of her left outer portion of the knee. PAST MEDICAL HISTORY: Significant for liver transplant, kidney transplant which go back to 12/20/2009. She has also been on dialysis at one time, hypertension. Orthopedic surgery for left leg fracture repair with hardware in [address] Valdovinos at . Fracture to the left leg, diabetes, hypothyroidism, skin cancer. Influenza vaccination up to date. We are still trying to clear her for her COVID vaccine's adverse reaction. ALLERGIES: No known allergies. MEDICATIONS: Her medication list from home: Fenofibrate one tablet daily, Lipitor 30 mg, carvedilol 12.5 mg b.i.d., zinc 50 mg, insulin 2 units subQ p.r.n., levothyroxine sodium, folic acid 0.8 mg, vitamin B complex, vitamin D, CellCept 250 mg p.o. b.i.d., cyclosporine 2 capsules p.o. b.i.d., leflunomide 30 mg daily. Last three a course are for immunosuppression for her transplants. She sees the transplant team down at twice yearly. SOCIAL HISTORY: Denies any smoking, alcohol or drug use, apparently lives at home. The patient otherwise stable. The patient is a full code. REVIEW OF SYSTEMS: The patient denies any headaches, visual changes, blurred vision, double vision. Denies any chest pain, shortness of breath, denies any abdominal pain. Primary pain is in that left knee area as noted above. Neurologically baseline. PHYSICAL EXAMINATION: GENERAL: A pleasant white female looking stated age of 80. VITAL SIGNS: Blood pressure 130/52, pulse 70, respiratory rate 15. She is running a temperature up to 100.2, oxygen saturation 97% on room air. HEENT: The patient's otherwise head was atraumatic and normocephalic. Eyes: PERRLA. Mouth and throat: Dry mucous membranes, poor dentition. NECK: Supple, without JVD or carotid bruits. No thyromegaly. LUNGS: Diminished without rales or rhonchi noted. HEART: Regular sinus rhythm. ABDOMEN: Soft, nontender. EXTREMITIES: The right leg appears to be basically normal pulses noted distally. Left leg appears swollen at the left knee, especially the lateral side. There is an approximately 3 x 2 cm abscess extending from the left side of the knee joint area. The leg does look erythematous toward the ankle. There is an erythematous area approximately 5 x 6 cm at that area as well. Pulses noted distally. NEUROLOGIC: As noted. Speech fluent, spontaneous, appropriate and cranial nerves II-XII grossly intact. The patient otherwise remains basically stable. LABORATORY DATA: White count 5.8, hemoglobin 12 and 36, no left shift noted. Chemistries: 144, 3.7, BUN and creatinine 30 and 1.3, glucose 122, calcium slightly high at 10.5, bilirubin 1.1. Liver enzymes were normal. Total albumin 3. 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 The patient will be monitored carefully and make further evaluation on her as indicated. Continue on the IV antibiotics as noted above, probably put a PICC line in her and do some other lab work on her. Her blood sugars continue to monitor carefully. LIZETH/USHA/ERLIN DR: LIZETH/case TID: [id number]
--- NOTE | 2020-11-13 18:58 | DS ---
DATE OF DISCHARGE: 11/13/2020 HOSPITAL COURSE: A 80-year-old female noted swelling and inflammation to her left knee with pain. The patient had pus coming from the joint of the left knee. The patient has had previous surgeries in that area with Dr. Valdovinos at [facility]. The patient in turn had an I and D performed. See procedure note and at the same token, the patient was stable. She has been placed on vancomycin and cefepime. The patient's culture and sensitivity reports are still pending, although she did have a positive blood culture for positive cocci in clusters and the patient was apparently on appropriate antibiotics. The patient was transferred down to for further evaluation by orthopedic surgeon. IMPRESSION: Septic knee joint, left, anemia of chronic disease, dehydration, hyperglycemia, hypercalcemia, moderate protein malnutrition. See MRAD. PLAN: The patient will be transferred down to [facility] for further evaluation as needed per orthopedic surgery. THOMAS MOY MD DR: LIZETH/case JOB#: [id number] / [id number]
[2020-11-14 00:08] LABS: HEMOGLOBIN A1C 5.3 % (4.8-5.6)
== END 2020-11-13 15:50 | disposition short-term general hospital (02) | DRG 486 ==
LOC: ER 19:52 → ICU 20:45
PROVIDERS: ADMIT Family Medicine; ATTEND Family Medicine
PROC: 0S9D0ZZ Drainage of Left Knee Joint, Open Approach (ICD-10-PCS; principal; 2020-11-12)
DX: M00.9 Pyogenic arthritis, unspecified (principal); L02.416 Cutaneous abscess of left lower limb; M86.9 Osteomyelitis, unspecified; E44.0 Moderate protein-calorie malnutrition; Z94.0 Kidney transplant status; Z94.4 Liver transplant status; L03.116 Cellulitis of left lower limb; E86.0 Dehydration; D63.8 Anemia in other chronic diseases classified elsewhere; E03.9 Hypothyroidism, unspecified; E11.65 Type 2 diabetes mellitus with hyperglycemia; E83.52 Hypercalcemia; I10 Essential (primary) hypertension; Z85.828 Personal history of other malignant neoplasm of skin; Z90.710 Acquired absence of both cervix and uterus; Z99.2 Dependence on renal dialysis; Z68.28 Body mass index [BMI] 28.0-28.9, adult
CPT/HCPCS: 36415; 73564; 80048; 80053; 80061; 81001; 82947; 83036; 83605; 85025; 87040; 87077; 87086; 87186; 87205; 93005; J0692; J1650; J2405; J3370; J7040; J7050; J7517; 99285-25; J7030